=== PATIENT | male | born 1950 | race Caucasian/White ===

== ENCOUNTER 2016-10-02 17:37 | Inpatient (IN) | payer OTHER, MEDICARE ==
[2016-10-02] MEDS ORDERED: fentaNYL 100 MCG/2 ML INJ ONE (17:41)
[2016-10-02] MEDS ORDERED: LIDOCAINE 1% 30 ML SDV ONE (17:41)
[2016-10-02] MEDS ORDERED: MIDAZOLAM 2 MG/2 ML VIAL ONE ×2 (17:41→18:17)
[2016-10-02] MEDS ORDERED: IOPAMIDOL (ISOVUE-370) 150 ML BTL IV ONE ×2 (17:42→17:43)
[2016-10-02] MEDS ORDERED: BIVALIRUDIN 250 MG/5 ML VIAL IV ONE (17:43)
[2016-10-02] MEDS ORDERED: NITROGLYCERIN 1,500 MCG/15 ML VIAL MISC ONE (17:43)
--- NOTE | 2016-10-02 17:45 | EDPHY ---
H & P Constitutional: Initial Vital Signs Temperature (C) 36.3 C 10/02/16 17:38 Heart Rate 47 L 10/02/16 17:38 Respiratory Rate 17 10/02/16 17:38 Blood Pressure 117/67 10/02/16 17:38 O2 Sat (%) 96 10/02/16 17:38 O2 Delivery Mode Nasal Cannula O2 (L/minute) 3 Allergies/Adverse Reactions: No Known Allergies Allergy (Unverified 10/02/16 17:49) Home Medications: Medication Instructions Recorded NK [No Known Home Meds] 10/02/16 Medical Decision Making ED Course/Re-evaluation: CHIEF COMPLAINT: Chest pain, Cardiac Alert HISTORY OF PRESENT ILLNESS: The patient is a 66 y/o male arriving via [facility]EMS as a Cardiac Alert with 2.5 hours of chest pain onset while hiking at [facility] around 15:00 today. Due to hyperlipidemia, the patient had a heart scan 10 years ago that showed some elevated plaque burden, but he denies any prior cardiac disease or previous complaints. He received at least 6 doses of aspirin prior to arrival, as fellow hikers kept handing him more doses as they passed. He continues to have chest pain upon arrival rated about 2/10 in severity located in his anterior chest with some radiation to his right arm. He denies shortness of breath or vomiting. REVIEW OF SYSTEMS: A 10 point review of systems was performed and is negative with the exception of the elements mentioned in the history of present illness. PHYSICAL EXAM: General Appearance: Alert, well hydrated, appropriate, and pale. Head: Atraumatic without scalp tenderness or obvious injury Eyes: Pupils equal, round, reactive to light and accommodation, EOMI, no trauma , no injection. Ears: Clear bilaterally, no perforation, normal landmarks Nose: Atraumatic, no rhinorrhea, clear. Throat: There is no erythema or exudates, no lesions, normal tonsils, mucus membranes moist. Neck: Supple, 2+ carotid upstroke, non-tender, no lymphadenopathy. Respiratory: No retractions, no distress, no wheezes, and no accessory muscle use. Lungs are clear to auscultation bilaterally. Cardiovascular: Bradycardic irregular rate and rhythm, no murmurs, rubs, or gallops. Good capillary refill all extremities. Gastrointestinal: Abdomen is soft, non-tender, non-distended, no masses, no rebound, no guarding, no peritoneal signs. Musculoskeletal: Normal active ROM of all extremities, atraumatic. Neurological: Alert, appropriate, and interactive. The patient has normal DTRs and non-focal cranial nerves, motor, sensory, and cerebellar exam. Skin: No rashes, good turgor, no nodules on palpation. PAST MEDICAL HISTORY: Hyperlipidemia, elevated calcium score 10 years ago PAST SURGICAL HISTORY: Noncontributory FAMILY HISTORY: Both parents have had cardiac catheterizations SOCIAL HISTORY: Lives in [place] DIAGNOSTICS/PROCEDURES/CRITICAL CARE TIME: The 12 lead EKG was interpreted by myself. Acute inferior posterior VT. Bradycardia. PAC. See hard copy and/or "tracemaster" electronic copy for interpretation. DIFFERENTIAL DIAGNOSIS: The differential diagnosis for the patient's chest pain included but was not limited to myocardial ischemia, pulmonary embolus, chest wall pain, pleural inflammation, and pulmonary infectious causes. MEDICAL DECISION MAKIN: Dr. Samayoa, area development consultant, at bedside. Respiratory at bedside. 1737: Met EMS upon arrival and took report. This is a normally healthy 66 y/o male who was hiking at [facility] this afternoon and developed acute onset anterior chest pain around 15:15. He required extrication by RMR to the helicopter. His initial BP was in the 130s systolic, but he became bradycardic in the 40s with a pressure around 90/60 en route. EMS believes he may have had intermittent 3rd degree block on EKG. Patient received multiple doses of aspirin and 500mL IV fluid prior to arrival. He has remained conscious with no other symptoms. 1738: Pads applied, labs sent, EKG in progress. 1739: Patient reports he had a heart scan 10 years ago due to existing hyperlipidemia that showed slightly elevated plaque burden. He denies any heart problems. Both parents required cardiac catheterizations for unclear reasons. 1740: HR 44, 117/67. EKG shows acute inferior and posterior VT. 1745: Patient sent to grass farm lab[facility] with Dr. Samayoa. - Data Points Laboratory Results: Laboratory Results 10/02/16 17:40 10/02/16 17:40 10/02/16 10/02/16 17:40 17:40 WBC 12.60 10^3/uL H 10^3/uL (3.80-9.50) RBC 4.74 10^6/uL 10^6/uL (4.40-6.38) Hgb 14.9 g/dL g/dL (13.7-17.5) Hct 44.3 % % (40.0-51.0) MCV 93.5 fL fL (81.5-99.8) MCH 31.4 pg pg (27.9-34.1) MCHC 33.6 g/dL g/dL (32.4-36.7) RDW 12.3 % % (11.5-15.2) Plt Count 216 10^3/uL 10^3/uL (150-400) MPV 10.7 fL fL (8.7-11.7) Neut % (Auto) 67.4 % % (39.3-74.2) Lymph % (Auto) 24.4 % % (15.0-45.0) [place] % (Auto) 7.3 % % (4.5-13.0) Eos % (Auto) 0.4 % L % (0.6-7.6) Baso % (Auto) 0.3 % % (0.3-1.7) Nucleat RBC Rel Count 0.0 % % (0.0-0.2) Absolute Neuts (auto) 8.48 10^3/uL H 10^3/uL (1.70-6.50) Absolute Lymphs (auto) 3.08 10^3/uL H 10^3/uL (1.00-3.00) Absolute Monos (auto) 0.92 10^3/uL H 10^3/uL (0.30-0.80) Absolute Eos (auto) 0.05 10^3/uL 10^3/uL (0.03-0.40) Absolute Basos (auto) 0.04 10^3/uL 10^3/uL (0.02-0.10) Absolute Nucleated RBC 0.00 10^3/uL 10^3/uL (0-0.01) Immature Gran % 0.2 % % (0.0-1.1) Immature Gran # 0.03 10^3/uL 10^3/uL (0.00-0.10) Sodium 143 mEq/L mEq/L (134-144) Potassium 3.9 mEq/L mEq/L (3.5-5.2) Chloride 104 mEq/L mEq/L (97-110) Carbon Dioxide 24 mEq/l mEq/l (22-31) Anion Gap 15 mEq/L mEq/L (8-16) BUN 14 mg/dL mg/dL (7-23) Creatinine 1.2 mg/dL mg/dL (0.7-1.3) Estimated GFR > 60 Glucose 134 mg/dL H mg/dL (70-100) Calcium 9.6 mg/dL mg/dL (8.5-10.4) Troponin I 0.016 ng/mL ng/mL (0-0.034) Medications Given: Discontinued Medications Prasugrel (Effient) 60 mg PO ONCE ONE Stop: 10/02/16 19:26 Last Admin: 10/02/16 20:47 Dose: Not Given Departure - Departure Disposition: [facility] Inpatient Acute Clinical Impression: Acute VT Qualifiers: Myocardial infarction ST status: ST elevation myocardial infarction Involved coronary artery: other inferior wall coronary artery Qualified Code(s): I21.19 - ST elevation (STEMI) myocardial infarction involving other coronary artery of inferior wall Condition: Fair Report Scribed for: Yuriy Sullivan Report Scribed by: Marija Gibson Date of Report: 10/02/16 Time of Report: 17:46
--- NOTE | 2016-10-02 17:51 | CPEKG ---
Heart Rate: 46 RR Interval: 1304 P-R Interval: 232 QRSD Interval: 100 QT Interval: 432 QTC Interval: 378 P [place]: 70 QRS [place]: 25 T Wave [place]: 93 EKG Severity - ABNORMAL ECG - EKG Impression: SINUS BRADYCARDIA EKG Impression: MULTIPLE ATRIAL PREMATURE COMPLEXES EKG Impression: FIRST DEGREE AV BLOCK EKG Impression: INFERIOR INJURY, PROBABLE EARLY ACUTE INFARCT EKG Impression: CONSIDER POSTERIOR WALL INVOLVEMENT Electronically Signed By: Yuriy Sullivan 02-Oct-2016 19:13:21
[2016-10-02 18:24] LABS: % IMMATURE GRANULYOCYTES 0.2 % (0.0-1.1); ABSOLUTE IMMATURE GRANULOCYTES 0.03 10^3/uL (0.00-0.10); ADD DIFF? NO; ADD MORPH? NO; ADD SCAN? NO; ATYPICAL LYMPHOCYTE FLAG 20 (0-99); FRAGMENT RBC FLAG 0 (0-99); HEMATOCRIT 44.3 % (40.0-51.0); HEMOGLOBIN 14.9 g/dL (13.7-17.5); LEFT SHIFT FLG 0 (0-99); LIPEMIA HEMOLYSIS FLAG 80 (0-99); MEAN CELL HEMOGLOBIN 31.4 pg (27.9-34.1); MEAN CELL HEMOGLOBIN CONCENTR. 33.6 g/dL (32.4-36.7); MEAN CELL VOLUME 93.5 fL (81.5-99.8); MEAN PLATELET VOLUME 10.7 fL (8.7-11.7); PLATELET CLUMPS FLAG 10 (0-99); PLATELET COUNT 216 10^3/uL (150-400); RED BLOOD CELL COUNT 4.74 10^6/uL (4.40-6.38); RED CELL DISTRIBUTION WIDTH 12.3 % (11.5-15.2)
[2016-10-02 18:26] LABS: ANION GAP 15 mEq/L (8-16); CALCIUM 9.6 mg/dL (8.5-10.4); CARBON DIOXIDE 24 mEq/l (22-31); CHLORIDE 104 mEq/L (97-110); CREATININE 1.2 mg/dL (0.7-1.3); GLOMERULAR FILTRATION RATE > 60; GLUCOSE 134 mg/dL (70-100); POTASSIUM 3.9 mEq/L (3.5-5.2); SODIUM 143 mEq/L (134-144)
[2016-10-02 18:37] LABS: TROPONIN I 0.016 ng/mL (0-0.034)
[2016-10-02] MEDS ORDERED: PRASUGREL HCL 10 MG TAB ONE (18:40)
[2016-10-02] MEDS ORDERED: HYDROCODONE/APAP 5/325 TAB PO PRN (19:25)
[2016-10-02] MEDS ORDERED: PRASUGREL HCL 10 MG TAB PO ONE (19:25)
[2016-10-02] MEDS ORDERED: LORazepam 2 MG/ML INJ IVP PRN (19:25)
[2016-10-02] MEDS ORDERED: ACETAMINOPHEN 325 MG TAB PO PRN (19:25)
[2016-10-02] MEDS ORDERED: ONDANSETRON DISINTEGRATING 4 MG TAB PO PRN (19:25)
[2016-10-02] MEDS ORDERED: ATROPINE SULFATE 1 MG/10 ML SYR IVP PRN (19:25)
[2016-10-02] MEDS ORDERED: NITROGLYCERIN 0.4 MG BTL SL PRN (19:25)
[2016-10-02] MEDS ORDERED: TEMAZEPAM 15 MG CAP PO PRN (19:25)
[2016-10-02] MEDS ORDERED: ONDANSETRON 4 MG/2 ML VIAL IVP PRN (19:25)
[2016-10-02] MEDS ORDERED: NS 1,000 ML IV SCH (19:30)
--- NOTE | 2016-10-02 19:38 | GHP ---
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 The patient had a heart scan 10 years ago that showed some plaque, but a usual amount for disease. He has not had prior cardiac problems. His chest pain persisted and EMS was called. He was met at the trail head. An ambulance took him across the parking lot to the hel icopter, and he arrived via helicopter EMS as a cardiac alert. I happened to be in the hospital and came to see the patient emergently for further evaluation. The patient denies a history of prior c hest pain, pressure, tightness, shortness of breath, decline in exercise tolerance, or other symptom s prior to today. He has not been recently ill. He has not had a cough, fever or chills, or recent travel. He has not noticed leg swelling, hematuria, hematemesis, melena, or other clinical symptom s of concern. Otherwise a 10 point review of systems is negative with the exception of the elements mentioned in the history of present illness. 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 He does not have hypertension or a history of rohini betes. He has had a history of dyslipidemia. Reports a family history of heart attack in his fathe r, who actually of an MO at an older age. 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 He lives at home with his and has two grown children, one of whom is a general practitioner in [place]. PHYSICAL EXAMINATION: VITAL SIGNS: His blood pressure is 110/76, pulse is irregular and relatively bradycardic with a pulse rate which was also irregular and in the 50s to 60s. He did not appear we ll and was somewhat anxious otherwise. He was also somewhat pale. HEENT: Exam was negative. Pupi ls were equal, round, and reactive to light. His nose was atraumatic. NECK: Revealed no JVD or ca rotid bruits. HEART: Revealed a normal S1 and S2 without murmur, rub, or gallop. LUNGS: Clear to auscultation bilaterally. The dorsalis pedis, posterior tibial, radial and brachial arteries were 2+, symmetrical, and equal bilaterally. ABDOMEN: Soft, with positive bowel sounds. It is nondiste nded and nontender. EXTREMITIES: Warm, dry, and well perfused without significant peripheral edema . His 12-lead EKG revealed an acute ST-segment elevation myocardial infarction with extension to the p osterior wall. LABORATORY STUDIES: Reviewed after the cardiac catheterization, revealing white count 12.6, H and H 14.9 and 44.3, platelet count 216. Absolute neutrophils elevated at 8.48, absolute lymphs 3.08. Tr oponin I on presentation is 0.016. Glucose is a nonfasting sample 134. BUN and creatinine 14 and _ with a sodium of 143, potassium 3.9. The patient has had intermittent third-degree heart block on his way on the telemetry in the helicop ter and ambulance, and therefore will not receive beta blockers. IMPRESSION AND PLAN: Acute inferior and true posterior myocardial infarction in progress. Informed consent was obtained. The patient will be taken to the cardiac catheterization laboratory for defi nitive angiography and planned emergency PCI. I have explained the risks, benefits, and alternative s of this course of action, including medical management, to the patient, who understands and is maite ling to proceed with an invasive procedure. Copy requested to: Mr. Kei Hollins Home Address Primary Care /[id number]/[place]
--- NOTE | 2016-10-02 20:14 | CPIP ---
DATE OF PROCEDURE: 10/02/2016 REPORT TITLE: CARDIAC CATHETERIZATION PROCEDURE REPORT. PROCEDURE PERFORMED: 1. Selective coronary angiography. 2. Left heart catheterization. 3. Left ventriculogram. 4. Percutaneous transluminal coronary angioplasty and stent placement of the proximal right coronar y artery with overlapping 4.0 x 32 and 4.0 x 16 Synergy drug-eluting stents. 5. Angio-Seal arteriotomy repair. COMPLICATIONS: None. INDICATION FOR THE PROCEDURE: Acute inferior and true posterior ST-segment elevation myocardial inf arction. PROCEDURE IN DETAIL: After informed consent, was emergently obtained, the patient was taken the [facility] catheterization laboratory. The region of the right groin was cleaned, prepped and draped in s terile fashion. A 7-Belgian sheath was established in the right common femoral artery and vein. Common femoral vein with a single anterior puncture of vessel, and the use of a micropuncture access kit. The patient then underwent diagnostic angiography of the left coronary system documenting, with the use of JL4 6-Belgian diagnostic catheter, the left main coronary lumen is approximately 6 mm in size, and the vessel trifurcates into an LAD, ramus, and circumflex system. The LAD arises in its usual location and has significant luminal irregularity consistent with underlying atherosclerosis. In th e proximal segment of the vessel, there is at least a 50% stenosis involving the LAD proper, and thi s may require further evaluation in the future. The ramus intermedius branch is large, and approxim ately 2.75 mm in size, and is free of flow-limiting obstruction. The circumflex vessel is codominan t. It gives rise to an obtuse marginal and posterolateral system, which reveals diffuse disease wit hin the primary branch of that obtuse marginal/posterolateral branch with at least an 80% stenosis i n that vessel. The circumflex proper does extend to the PDA, and has a 90% obstruction just after t he origin of a left atrial branch. The vessel was small, approximately 2 mm in size. The right coronary artery is at least 4 mm in size. It is completely occluded with MARKO-0 flow. Pr oximal to the RV branch, a 7-Belgian guiding catheter with side holes was used for diagnostic angiogr aphy. A 0.014 Intuition wire was advanced across the lesion in question. Immediately balloon, a 2. 0 x 15 balloon, was advanced and inflated with a door to balloon time of 27 minutes. There was sign ificant residual thrombus, some of which was seen going downstream toward the distal RCA after the i nitial balloon inflation, and therefore, the vessel was promptly stented with a 4.0 x 32 Synergy jordyn nt. There was a 40% residual lesion proximally with some abnormal flow characteristics into the jordyn nt. Therefore, a 4.0 x 16 Synergy stent was used to cuff the original result, and this was inflated to high pressure at 14-16 atmospheres with excellent angiographic results, 0% residual stenosis and MARKO-3 flow. At the acute margin of the right coronary there is a residual 63% stenosis on the basis of QCA, whic h appeared to have possibly some layered thrombus which may improve with medical management and, the refore, I elected not to place another stent. There was clearly a distal lesion in the distal RCA p roximal to the PDA takeoff. Which is at least 40% stenosed, and it looks like a plaque. There was e vidence of distal embolization, as I mentioned, of clot into the distal PD, and a 2nd intuition wire was advanced across both lesions and ballooned with a small, 1.5 x 12 balloon at low pressure. The re was residual 40% stenosis of one of the branches, and both of the bifurcating distal branches whe re they tapered to less than 1 mm continued to be completely occluded with MARKO-0 flow at the very d istal PDA. We elected not to continue to try to open the vessels because of their small size and di stal location. I felt it would be more risky to continue that effort, especially since the patient appears to have a codominant circulation. Patient underwent left heart catheterization demonstrating elevated left ventricular end-diastolic p ressure measured at 22 mmHg. The patient underwent left ventriculogram in the [place] projection demons trating preserved left ventricular systolic function. Ejection fraction is 60%. There is mild basa l inferior wall hypokinesis consistent with the patient's recent heart attack. The visualized porti on of the thoracic aorta appeared to be normal in size. There were 3 sinuses of Valsalva, most cons istent with a trileaflet aortic valve, and there was no evidence of lita aneurysm or dissection of the coronary circulation. The patient underwent successful Angio-Seal arteriotomy repair after angiography documented appropri ate common femoral stick. FINAL IMPRESSION: Severe kaw vessel coronary disease with residual stenoses of importance in the proximal left anterior descending, circumflex, obtuse marginal system, circumflex proper of a codom inant circumflex, 60% lesion of the acute margin of the right coronary, and distally embolized poste rior descending artery with overall well-preserved ejection fraction early following acute myocardia l infarction. PLAN: The patient will be admitted to ICU. Beta-blockers will be withheld secondary to an episode of asystole and documented third-degree heart block in the ambulance on the way to the hospital. I feel that early use of beta-blockers would not be in the patient's best interests. The patient will be treated with ROMY inhibitors, high-dose statin therapy, aspirin and Effient, which will need to b e continued for a minimum of 1 year following drug-eluting stent implantation. Copy requested to: Kei Hollins Home Address /[id number]/[place]
[2016-10-02 22:35] LABS: CK-MB INTERPRETATION POSITIVE (NEGATIVE)
[2016-10-02 23:24] LABS: ALANINE AMINOTRANSFERASE 40 IU/L (21-72); ALBUMIN 3.3 g/dL (3.5-5.0); ALKALINE PHOSPHATASE 44 IU/L (38-126); ANION GAP 5 mEq/L (8-16); ASPARTATE AMINOTRANSFERASE 66 IU/L (17-59); BILIRUBIN,TOTAL 0.6 mg/dL (0.1-1.4); CALCIUM 8.1 mg/dL (8.5-10.4); CARBON DIOXIDE 23 mEq/l (22-31); CHLORIDE 107 mEq/L (97-110); CREATININE 0.9 mg/dL (0.7-1.3); GLOMERULAR FILTRATION RATE > 60; GLUCOSE 107 mg/dL (70-100); POTASSIUM 3.9 mEq/L (3.5-5.2); SODIUM 135 mEq/L (134-144); TOTAL PROTEIN 6.1 g/dL (6.3-8.2)
[2016-10-03] MEDS ORDERED: SODIUM CL NASAL 45 ML BTL EACHNARE PRN (01:15)
[2016-10-03] MEDS ORDERED: CETIRIZINE 10 MG TAB PO ONE (04:47)
[2016-10-03 05:21] LABS: % IMMATURE GRANULYOCYTES 0.4 % (0.0-1.1); ABSOLUTE IMMATURE GRANULOCYTES 0.03 10^3/uL (0.00-0.10); ADD DIFF? NO; ADD MORPH? NO; ADD SCAN? NO; ATYPICAL LYMPHOCYTE FLAG 20 (0-99); FRAGMENT RBC FLAG 0 (0-99); HEMATOCRIT 35.4 % (40.0-51.0); LEFT SHIFT FLG 0 (0-99); LIPEMIA HEMOLYSIS FLAG 90 (0-99); MEAN CELL HEMOGLOBIN CONCENTR. 33.9 g/dL (32.4-36.7); MEAN CELL VOLUME 94.4 fL (81.5-99.8); MEAN PLATELET VOLUME 10.6 fL (8.7-11.7); PLATELET CLUMPS FLAG 10 (0-99); PLATELET COUNT 169 10^3/uL (150-400); RED BLOOD CELL COUNT 3.75 10^6/uL (4.40-6.38); RED CELL DISTRIBUTION WIDTH 12.6 % (11.5-15.2)
[2016-10-03 05:34] LABS: ALANINE AMINOTRANSFERASE 44 IU/L (21-72); ALBUMIN 3.1 g/dL (3.5-5.0); ALKALINE PHOSPHATASE 41 IU/L (38-126); ANION GAP 7 mEq/L (8-16); ASPARTATE AMINOTRANSFERASE 105 IU/L (17-59); BILIRUBIN,TOTAL 0.5 mg/dL (0.1-1.4); CALCIUM 8.4 mg/dL (8.5-10.4); CARBON DIOXIDE 23 mEq/l (22-31); CHLORIDE 109 mEq/L (97-110); GLOMERULAR FILTRATION RATE > 60; GLUCOSE 103 mg/dL (70-100); LACTATE DEHYDROGENASE 643 IU/L (313-618); SODIUM 139 mEq/L (134-144); TOTAL PROTEIN 5.8 g/dL (6.3-8.2)
[2016-10-03] MEDS: PRASUGREL HCL 10 MG TAB PO SCH (08:14)
[2016-10-03] MEDS: ASPIRIN EC 325 MG TAB PO SCH (08:14)
--- NOTE | 2016-10-03 08:50 | SOAPPROG ---
DG Progress Note Assessment/Plan: Assessment: Cardiology (Feliz, gis consultant for ) 1. Acute inferior and posterior STEMI yesterday, arrived via HEMS. Culprit lesion of totally occluded proximal large codominant RCA treated w/ overlapping DESx2. There is residual LAD, Cx, and PDA disease, see report. Troponin still uptrending, 23 this am. LVEF preserved at 60% with inferior WMA by LV gram. On DAPT with aspirin and Effient. 12 lead EKG today shows NSR with inferior Q waves , ICBBB. Echo results pending, unofficially normal LVEF with inf. WMA. 2. Reported complete heart block while in transport via EMS. No recurrence on telemetry overnight. Currently in NSR at 67 bpm. 3. Multiple episodes of non-sustained WCT likely VT of 150 bpm, longest 12-15 s. Beta gregory currently on hold per #2. 4. Family history of MIs in both parents in their 80s. Brother had CVA at age 50. 5. Peripheral neuropathy. 6. No known HTN, DM, or hyperlipidemia. Plan: Discussed w/ Dr. Aguiar. -Tx to PCU -Start atorvastatin 20 mg/d. -Start metoprolol tartrate 12.5 mg po bid. -Add lisinopril tomorrow so long as BP tolerates low dose BB. -Serial troponins. 10/03/16 11:26 Objective: Vital Signs Temp Pulse Resp BP Pulse Ox 36.8 C 62 18 121/60 H 95 10/03/16 07:27 10/03/16 07:27 10/03/16 07:27 10/03/16 07:27 10/03/16 07:27 Laboratory Results 10/03/16 04:30 10/03/16 04:30 10/02/16 10/03/16 10/04/16 05:59 05:59 05:59 Intake Total 1100 Output Total 550 Balance 550 ICD10 Worksheet Patient Problems: Problems Problem Status Onset Acute VT Acute
[2016-10-03] MEDS ORDERED: LISINOPRIL 5 MG TAB PO SCH (09:00)
[2016-10-03] MEDS ORDERED: ATORVASTATIN CALCIUM 40 MG TAB PO SCH (09:00)
--- NOTE | 2016-10-03 09:23 | CPEKG ---
Heart Rate: 69 RR Interval: 870 P-R Interval: 172 QRSD Interval: 94 QT Interval: 384 QTC Interval: 412 P [place]: 79 QRS [place]: -41 T Wave [place]: 36 EKG Severity - ABNORMAL ECG - EKG Impression: SINUS RHYTHM EKG Impression: PROBABLE INFERIOR INFARCT, AGE INDETERMINATE Electronically Signed By: Jimy Conklin 03-Oct-2016 10:05:38
[2016-10-03] MEDS: METOPROLOL TARTRATE 25 MG TAB PO SCH ×2 (10:33→21:16)
[2016-10-03] MEDS: ATORVASTATIN CALCIUM 20 MG TAB PO SCH (12:00)
--- NOTE | 2016-10-03 12:04 | ECHO ---
[id number] + + [address] : : [place] [address] : : [phone] + Adult Echocardiographic Report + ---+ :Name: GIGI VIRAMONTESdanielle Date: 10/03/2016 08:43 AM : : Hospital Admission Number: [id number] Location: icu: :: 1950 Gender: Male Height: 69 in : :Age: 66 yrs Race: WH Weight: 165 lb : :Reason For Study: Post IA : : BSA: 1.9 meters2 : + ---+ MMode/2D Measurements \T\ Calculations IVSd: 0.73 cm LVIDd: 4.9 cm FS: 43.1 % Ao root diam: LVPWd: 0.83 cm LVIDs: 2.8 cm EDV(Teich): 3.7 cm 111.7 ml LA dimension: ESV(Teich): 3.6 cm 28.9 ml EF(Teich): 74.1 % LVLd ap4: 8.7 cm SV(MOD-sp4): EDV(MOD-sp4): 46.0 ml 74.0 ml LVLs ap4: 7.1 cm ESV(MOD-sp4): 28.0 ml EF(MOD-sp4): 62.2 % Normal Measurement Values: + + :LVIDd (3.5-5.7cm) IVSd (0.6-1.1cm) LVPWd (0.6-1.1cm) Aortic Root (2.0-3.7cm)Left Atrium (1.5-4.0cm): :LV Vol(d) (76-115ml) LV Vol(s) (29-48ml) Ejec Fraction (50-65%)PV Travis (0.6- 1.2m/s) TV Travis (0.4-1.0m/s) : :MV E Travis (0.8-1.0m/s)MV A Travis (0.3-1.0m/s)LVOT Travis (0.7-1.2m/s) Asc Ao Travis ( 0.9-1.8m/s) : + + Doppler Measurements \T\ Calculations MV E max travis: 82.9 cm/sec Ao mean P.7 mmHg TR max travis: 186.0 cm/sec MV A max travis: 64.2 cm/sec Ao V2 mean: 91.0 cm/sec TR max P.8 mmHg MV E/A: 1.3 Ao V2 VTI: 24.4 cm RAP systole: 5.0 mmHg RVSP(TR): 18.8 mmHg Left Ventricle The left ventricle is normal in size. There is normal left ventricular wall thickness. Left ventricular systolic function is normal. Ejection Fraction = 65-70%. No regional wall motion abnormalities noted. Right Ventricle The right ventricle is normal in size and function. The right ventricular systolic function is mild to moderately reduced. Atria The left atrial size is normal. The right atrium is moderately dilated. The interatrial septum is intact with no evidence for an atrial septal defect. Mitral Valve The mitral valve is normal in structure and function. There is no evidence of mitral valve prolapse. There is no mitral valve stenosis. There is mild mitral regurgitation. Tricuspid Valve Normal tricuspid valve. There is trace tricuspid regurgitation. Aortic Valve The aortic valve is trileaflet. The aortic valve opens well. Mildly calcified NCC of the aortic valve. There is no aortic stenosis. There is no aortic insufficiency. Pulmonic Valve The pulmonic valve is normal in structure and function. There is no pulmonic valvular regurgitation. Great Vessels The aortic root is normal size. Pericardium/Pleural There is no pericardial effusion. Conclusion A complete two-dimensional transthoracic echocardiogram was performed (2D, M-mode, Doppler and color flow Doppler). The patient has a dilated IVC. Left ventricular systolic function is normal. Ejection Fraction = 65-70%. The right ventricular systolic function is mild to moderately reduced. The right atrium is moderately dilated. There is mild mitral regurgitation. There is trace tricuspid regurgitation. Mildly calcified NCC of the aortic valve. Final Reading Physician: Hugo Augustin signed on 10/03/2016 12:03 PM Ordering Physician: Mehran Samayoa Performed By: Margo Harris, [facility]
[2016-10-03] MEDS ORDERED: ATROPINE SULFATE 1 MG/10 ML SYR ONE (23:00)
[2016-10-03 23:24] VITALS: O2SAT 93
[2016-10-04 07:47] VITALS: BP 129/78; PULSE 55; RESP 16; TEMP 98.1
[2016-10-04 07:55] LABS: % IMMATURE GRANULYOCYTES 0.5 % (0.0-1.1); ABSOLUTE IMMATURE GRANULOCYTES 0.04 10^3/uL (0.00-0.10); ADD DIFF? NO; ADD MORPH? NO; ADD SCAN? NO; ATYPICAL LYMPHOCYTE FLAG 20 (0-99); FRAGMENT RBC FLAG 0 (0-99); HEMATOCRIT 35.9 % (40.0-51.0); HEMOGLOBIN 12.3 g/dL (13.7-17.5); LEFT SHIFT FLG 0 (0-99); LIPEMIA HEMOLYSIS FLAG 90 (0-99); MEAN CELL HEMOGLOBIN 32.2 pg (27.9-34.1); MEAN CELL HEMOGLOBIN CONCENTR. 34.3 g/dL (32.4-36.7); MEAN PLATELET VOLUME 10.7 fL (8.7-11.7); PLATELET CLUMPS FLAG 0 (0-99); PLATELET COUNT 156 10^3/uL (150-400); RED BLOOD CELL COUNT 3.82 10^6/uL (4.40-6.38); RED CELL DISTRIBUTION WIDTH 12.7 % (11.5-15.2)
[2016-10-04 08:00] LABS: ANION GAP 8 mEq/L (8-16); CALCIUM 8.5 mg/dL (8.5-10.4); CARBON DIOXIDE 24 mEq/l (22-31); CHLORIDE 112 mEq/L (97-110); CHOLESTEROL 123 mg/dL (140-220); CHOLESTEROL/HDL RATIO 3.97 RATIO (1.00-4.97); GLOMERULAR FILTRATION RATE > 60; GLUCOSE 90 mg/dL (70-100); HIGH DENSITY LIPOPROTEIN 31 mg/dL (40-65); LDL/HDL RATIO 2.19 RATIO (1.00-3.64); LOW DENSITY LIPOPROTEIN 68 mg/dL (80-100); NON-HIGH DENSITY LIPOPROTEIN 92 mg/dL (90-129); SODIUM 144 mEq/L (134-144); TRIGLYCERIDE 120 mg/dL (40-150); VERY LOW DENSITY LIPOPROTEINS 24 mg/dL (8-25)
[2016-10-04] MEDS: PRASUGREL HCL 10 MG TAB PO SCH (08:28)
[2016-10-04] MEDS: ASPIRIN EC 325 MG TAB PO SCH (08:28)
[2016-10-04] MEDS: ATORVASTATIN CALCIUM 20 MG TAB PO SCH (08:28)
[2016-10-04] MEDS: METOPROLOL TARTRATE 25 MG TAB PO SCH (08:28)
--- NOTE | 2016-10-04 14:53 | GDS ---
DIAGNOSES: 1. Acute ST-segment elevation inferior wall myocardial infarction. 2. Coronary artery disease. 3. Strong family history of coronary disease. 4. Hyperlipidemia. 5. Previous abnormal coronary calcium score. 6. Nonsustained wide-complex tachycardia following reperfusion. 7. Prehospital intermittent complete heart block and post reperfusion moderate length period of sin us arrest. PROCEDURES PERFORMED: 1. Left heart catheterization with left ventricular and selective coronary angiography. 2. Percutaneous angioplasty and stent placement in the right coronary artery with overlapping 4.0 x 32 mm and 4.0 x 16 mm Synergy drug-eluting stents. 3. Echocardiography. HOSPITAL COURSE: This 66-year-old man with no previous cardiac history was admitted via helicopter transfer from the [facility], where he had acute onset of chest discomfort and shortness of breath. He was brought to the emergency department where he had ST-segment elevation, and was taken to the catheterization laboratory by Dr. Samayoa and found to have a totally occluded right coronary , treated with angioplasty and 2 drug-eluting stents in the proximal and midvessel with excellent re sult, with moderate untreated more distal disease. Patient was also found to have disease in the ob tuse marginal/posterolateral branch and distal circumflex branch in the 80% to 90% range in these ap proximately 2 mm vessels. These were not treated at the time of acute intervention. Left ventricul ar wall motion was remarkably near normal, confirmed by echocardiography the next day with normal ej ection fraction of approximately 65% to 70%. There is evidence for possible right ventricular infar ction by echo with mild reduction in function. There was no significant valvular disease, other severo n some aortic valve sclerosis without stenosis. Eight. Patient had some reperfusion wide-complex a rrhythmias, which resolved within 24 hours. Troponin peaked at 24. There were no other significant abnormalities. DISCHARGE MEDICATIONS: Aspirin 81 mg daily, Prasugrel 10 mg daily, metoprolol succinate 25 mg daily , ramipril 2.5 mg daily, and rosuvastatin 40 mg daily. FOLLOWUP PLANS: The patient lives in [place] and has been given the name and phone number of Dr. Jessi Simpson, an water softener servicer in [place]. Hopefully, the patient can follow up within this next week. Ultimately, a decision will need to be made regarding his circumflex disease. We will get the patient a copy of his catheterization films. Dual antiplatelet therapy for [address] atin therapy for life. Consideration for beta-gregory and ROMY-inhibitor for long-term use. This wa s all discussed in detail with the patient. One hour was spent discharging the patient. Copy requested to: Dr. Frandy Garay #: [id number]
--- NOTE | 2016-10-05 08:02 | CPEKG ---
Heart Rate: 68 RR Interval: 882 P-R Interval: 180 QRSD Interval: 98 QT Interval: 384 QTC Interval: 409 P Yale: 80 QRS Yale: -37 T Wave Yale: 59 EKG Severity - BORDERLINE ECG - EKG Impression: SINUS RHYTHM EKG Impression: VENTRICULAR PREMATURE COMPLEX EKG Impression: LEFT AXIS DEVIATION EKG Impression: LOW VOLTAGE IN FRONTAL LEADS EKG Impression: BORDERLINE INFERIOR Q WAVES Preliminary Awaiting MD Review
== END 2016-10-04 14:13 | disposition home or self-care (01) | DRG 247 ==
LOC: F2N 20:29 → F2W 10-03 14:40
PROVIDERS: ADMIT Internal Medicine Cardiovascular Disease; ATTEND Internal Medicine Interventional Cardiology
PROC: 027035Z Dilation of Coronary Artery, One Artery with Two Drug-eluting Intraluminal Devices, Percutaneous Approach (ICD-10-PCS; principal; 2016-10-02)
PROC: B2151ZZ Fluoroscopy of Left Heart using Low Osmolar Contrast (ICD-10-PCS; principal; 2016-10-02)
PROC: B2111ZZ Fluoroscopy of Multiple Coronary Arteries using Low Osmolar Contrast (ICD-10-PCS; principal; 2016-10-02)
PROC: 4A023N7 Measurement of Cardiac Sampling and Pressure, Left Heart, Percutaneous Approach (ICD-10-PCS; principal; 2016-10-02)
DX: I21.19 ST elevation (STEMI) myocardial infarction involving other coronary artery of inferior wall (principal); I25.10 Atherosclerotic heart disease of native coronary artery without angina pectoris; I44.2 Atrioventricular block, complete; E78.5 Hyperlipidemia, unspecified
CPT/HCPCS: C1725; C1760; C1769; C1874; C1887; C9606; J0461; J0583; J1644; J2250; J3010; Q9967